=== PATIENT | female | born 1950 | race Caucasian/White ===

== ENCOUNTER 2019-09-30 08:43 | Outpatient (CLI) | payer MEDICARE ==
--- NOTE | 2019-09-30 09:23 | MMO ---
Bilateral MAMMO Bilat Screen [facility]. CLINICAL HISTORY: Patient is 68 years old and is seen for screening. The patient has the following family history of breast cancer: mother, at age 58; sister, at age 64 and aunt. The patient has a history of thyroid cancer at age 32. VIEWS: The views performed were: bilateral craniocaudal with tomosynthesis; bilateral mediolateral oblique; bilateral mediolateral oblique with tomosynthesis; and left exaggerated craniocaudal. FILMS COMPARED: The present examination has been compared to prior imaging studies performed at [facility] on 09/21/2015, 09/23/2016, 09/26/2017 and 09/28/2018. This study has been interpreted with the assistance of computer-aided detection. MAMMOGRAM FINDINGS: The breasts are heterogeneously dense, which could obscure a lesion on mammography. There are no suspicious masses, suspicious calcifications, or new areas of architectural distortion. IMPRESSION: THERE IS NO MAMMOGRAPHIC EVIDENCE OF MALIGNANCY. A ROUTINE FOLLOW-UP MAMMOGRAM IN 1 YEAR IS RECOMMENDED. THE RESULTS OF THIS EXAM WERE SENT TO THE PATIENT. ACR BI-RADS Category 1 - Negative MAMMOGRAPHY NOTE: 1. A negative mammogram report should not delay a biopsy if a dominant of clinically suspicious mass is present. 2. Approximately 10% to 15% of breast cancers are not detected by mammography. 3. Adenosis and dense breasts may obscure an underlying neoplasm. Reported by: SYEDA LUI MD Electonically Signed: [id number]
== END 2019-09-30 08:44 | disposition home or self-care (01) ==
LOC: BICMAMMO 08:43
PROVIDERS: ATTEND Family Medicine
DX: Z12.31 Encounter for screening mammogram for malignant neoplasm of breast (principal); Z85.850 Personal history of malignant neoplasm of thyroid; Z80.3 Family history of malignant neoplasm of breast
CPT/HCPCS: 77063; 77067

== ENCOUNTER 2020-08-13 10:28 | Outpatient (CLI) | payer MEDICARE ==
--- NOTE | 2020-08-13 12:06 | MRI ---
MRI CERVICAL SPINE WITHOUT CONTRAST: INDICATION: A 69-year-old female with a history of cervical disk disease and radiculopathy. COMPARISON: Radiographs dated 10/07/2006 from [facility]. FINDINGS: Visualized aspects of the posterior fossa appear within normal limits. Prevertebral soft tissues arti ear within normal limits. Bone marrow signal intensity appears within normal limits. Spinal alignme nt is within normal limits. The patient has post-procedural change of a right thyroidectomy. This i s stable to a prior CT of the neck dated 01/30/2015. At the C2-C3 level, there is a small broad-based bulge, but no appreciable central canal or neural fo raminal narrowing. At C3-4, there is a broad-based bulge with mild uncovertebral hypertrophy and facet hypertrophy induc ing mild bilateral neural foraminal narrowing and mild central canal narrowing without cord flattenin g. At C4-5, there is a broad-based bulge with uncovertebral hypertrophy and facet joint degenerative kimmy nge using moderate to severe right and mild left neural foraminal narrowing with mild central canal n arrowing. At C5-6, there is a broad-based bulge with uncovertebral hypertrophy and facet joint degenerative kimmy nge inducing mild bilateral neural foraminal narrowing and mild central canal narrowing. At C6-7, there is a broad-based bulge with superimposed central protrusion causing mild central canal narrowing. There is no appreciable neural foraminal narrowing. At C7-T1, there is an asymmetric to the right broad-based disk bulge inducing mild to moderate right and mild left neural foraminal narrowing. IMPRESSION: 1. Multilevel disk bulges of the cervical spine inducing mild central canal narrowing from C3-4 thro ugh C6-7. 2. Mild bilateral neural foraminal narrowing at C3-4 due to uncovertebral hypertrophy and facet join t degenerative change. 3. Moderate to severe right neural foraminal narrowing at C4-5 due to uncovertebral hypertrophy and facet joint degenerative change. 4. Mild bilateral neural foraminal narrowing at C5-6. 5. Mild to moderate right neural foraminal narrowing at C7-T1. There is mild left neural foraminal narrowing at C7-T1. POS: [facility]
== END 2020-08-13 10:29 | disposition home or self-care (01) ==
LOC: BICMRI 10:28
PROVIDERS: ATTEND Family Medicine
DX: M50.10 Cervical disc disorder with radiculopathy, unspecified cervical region (principal); M48.02 Spinal stenosis, cervical region; M48.061 Spinal stenosis, lumbar region without neurogenic claudication; M51.36 Other intervertebral disc degeneration, lumbar region; M48.03 Spinal stenosis, cervicothoracic region
CPT/HCPCS: 72141

== ENCOUNTER 2020-10-01 11:29 | Outpatient (CLI) | payer MEDICARE ==
--- NOTE | 2020-10-01 12:28 | MMO ---
Bilateral MAMMO Bilat Screen [facility]. CLINICAL HISTORY: Patient is 69 years old and is seen for screening. The patient has the following family history of breast cancer: mother, at age 58; sister, at age 64 and thyroid cancer at age 31. VIEWS: The views performed were: bilateral mediolateral oblique with tomosynthesis; bilateral craniocaudal with tomosynthesis; left mediolateral oblique; and left craniocaudal. FILMS COMPARED: The present examination has been compared to prior imaging studies performed at [facility] and [facility] on 09/23/2016, 09/26/2017, 09/28/2018 and 09/30/2019. This study has been interpreted with the assistance of computer-aided detection. MAMMOGRAM FINDINGS: There are scattered fibroglandular densities. There are stable benign appearing calcifications seen in both breasts. Nodularity is stable. There are no suspicious masses, suspicious calcifications, or new areas of architectural distortion. IMPRESSION: THERE IS NO MAMMOGRAPHIC EVIDENCE OF MALIGNANCY. A ROUTINE FOLLOW-UP MAMMOGRAM IN 1 YEAR IS RECOMMENDED. THE RESULTS OF THIS EXAM WERE SENT TO THE PATIENT. ACR BI-RADS Category 2 - Benign finding MAMMOGRAPHY NOTE: 1. A negative mammogram report should not delay a biopsy if a dominant of clinically suspicious mass is present. 2. Approximately 10% to 15% of breast cancers are not detected by mammography. 3. Adenosis and dense breasts may obscure an underlying neoplasm. Reported by: WALE ADAMS MD Electonically Signed: [id number]
== END 2020-10-01 11:30 | disposition home or self-care (01) ==
LOC: BICMAMMO 11:29
PROVIDERS: ATTEND Family Medicine
DX: Z12.31 Encounter for screening mammogram for malignant neoplasm of breast (principal); Z80.3 Family history of malignant neoplasm of breast
CPT/HCPCS: 77063; 77067

== ENCOUNTER 2021-10-15 09:56 | Outpatient (CLI) | payer MEDICARE | END 2021-10-15 09:57 | disposition home or self-care (01) | LOC: BICMAMMO 09:56 | PROVIDERS: ATTEND Family Medicine | DX: Z12.31 Encounter for screening mammogram for malignant neoplasm of breast (principal); Z80.3 Family history of malignant neoplasm of breast | CPT/HCPCS: 77063; 77067 ==

== ENCOUNTER 2022-05-11 13:29 | Outpatient (CLI) | payer MEDICARE | END 2022-05-11 13:30 | disposition home or self-care (01) | LOC: BICRAD 13:29 | PROVIDERS: ATTEND Family Medicine | DX: M25.512 Pain in left shoulder (principal); M19.012 Primary osteoarthritis, left shoulder ==

== ENCOUNTER 2022-07-02 18:44 | Emergency (ER) | payer MEDICARE ==
[2022-07-02 19:16] LABS: #Basophils 0.1 thou/uL (0.0-0.2); #Eosinphils 0.1 thou/uL (0.0-0.7); #Lymphocytes 2.8 thou/uL (1.20-3.40); #Monocytes 0.8 thou/uL (0.11-0.59); #Neutrophils 3.2 thou/uL (1.40-6.50); %Basophils 1.8 % (0.0-1.0); %Eosinophils 1.5 % (0.0-10.0); %Lymphocytes 40.5 % (21.0-51.0); %Neutrophils 45.2 % (42.0-75.0); Hemoglobin 15.1 g/dL (12.0-16.0); Mean Corpuscular HGB CONC 33.1 g/dL (32.0-36.0); Mean Corpuscular Hemoglobin 31.5 pg (27.0-31.0); Mean Corpuscular Volume 95.2 fL (78.0-98.0); Mean Platelet Volume 7.7 fL (7.4-10.4); Platelet Count 408 thou/uL (130-400); RBC Distribution Width 12.8 % (11.5-14.5)
[2022-07-02 19:37] LABS: ALT (SGPT) 56 U/L (8-55); AST (SGOT) 30 U/L (5-34); Albumin 4.3 g/dL (3.4-4.8); Alkaline Phosphatase 131 U/L (40-110); Anion Gap 15 mmol/L (10-20); BUN (Urea Nitrogen) 13 mg/dL (9.8-20.1); Bilirubin, Total Less than 0.2 mg/dL (0.2-1.2); Calc. Creatinine Clearance 0 mL/min (70-130); Calcium 9.9 mg/dL (7.8-10.44); Carbon Dioxide 23 mmol/L (23-31); Chloride 106 mmol/L (98-107); Estimated GFR 71; Globulin 3.3 g/dL (2.4-3.5); Glucose 212 mg/dL (80-115); Lipase 18 U/L (8-78); Potassium 4.2 mmol/L (3.5-5.1); Protein, Total 7.6 g/dL (5.8-8.1); Sodium 140 mmol/L (136-145)
[2022-07-02] MEDS ORDERED: Aspirin Chewable 81 MG TAB ONE (19:45)
[2022-07-02] MEDS ORDERED: Mag-Al 1200 mg/1200 mg/30 ML UDCUP ONE (19:47)
[2022-07-02] MEDS ORDERED: Lidocaine Viscous Sol 2% 15 ml UD Cup ONE (19:47)
[2022-07-02] MEDS ORDERED: Nitroglycerin 2% Ointment 1 INCH/1 GM Packet ONE (20:41)
== END 2022-07-02 22:25 | disposition short-term general hospital (02) ==
LOC: ERS 18:44
DX: R07.9 Chest pain, unspecified (principal); E11.9 Type 2 diabetes mellitus without complications; I10 Essential (primary) hypertension; E78.5 Hyperlipidemia, unspecified
CPT/HCPCS: 36415; 71045; 80053; 83690; 83880; 84484; 85025; 93005; 94760

== ENCOUNTER 2022-10-18 10:00 | Outpatient (CLI) | payer MEDICARE, OTHER | END 2022-10-18 10:01 | disposition home or self-care (01) | LOC: BICMAMMO 10:00 | PROVIDERS: ATTEND Family Medicine | DX: Z12.31 Encounter for screening mammogram for malignant neoplasm of breast (principal); Z80.3 Family history of malignant neoplasm of breast | CPT/HCPCS: 77063; 77067 ==